=== PATIENT | female | born 1950 | race African-American/Black ===

== ENCOUNTER 2018-01-30 05:46 | Day surgery (SDC) | payer MEDICARE, MEDICAID ==
[~2018-01-30] VITALS: Ht 157.5 cm; Wt 77.1 kg
[~2018-01-30 05:46] MED LIST: ACET5SOL2 PO; AMLO10TA80 PO; ASPI-1159 PO; ATOR20TA65 PO; BENA5TAB3 PO; DOCU250C19 PO; METH50TA5 PO; NAPR-681 PO; PRED1DRO BOTHEYE; XALAO EACHEYE
[2018-01-30] MEDS ORDERED: TROPICAMIDE 1% OPHTH DROPS 15ML RIGHTEYE ONE (06:05)
[2018-01-30] MEDS ORDERED: CYCLOPENTOLATE HCL 1% OPHTH DROPS 2ML RIGHTEYE ONE (06:05)
[2018-01-30] MEDS ORDERED: PHENYLEPHRINE HCL 10% OPHTH DROPS 5ML RIGHTEYE ONE (06:05)
[2018-01-30] MEDS ORDERED: LACTATED RINGERS 1,000 ML IV SCH (06:35)
[2018-01-30] MEDS ORDERED: LIDOCAINE HCL/PF 1% 10 MG/ML 5ML VIAL ONE (07:04)
[2018-01-30] MEDS ORDERED: HYALURONATE SODIUM 14 MG/ML 0.85ML SYRINGE IO ONE (07:19)
[2018-01-30] MEDS ORDERED: BALANCED SALT IRRIG SOLN COMB1 500ML OP SCH (07:30)
[2018-01-30] MEDS ORDERED: PROPOFOL 200MG/20ML VIAL IV ONE ×3 (07:33→08:25)
[2018-01-30] MEDS ORDERED: PREDNISOLONE ACETATE 1% OPHTH DROPS 1ML ONE (14:34)
[2018-01-30] MEDS ORDERED: LIDOCAINE HCL/PF 2% 20 MG/ML 10ML VIAL ONE (14:34)
[2018-01-30] MEDS ORDERED: ACETYLCHOLINE CHLORIDE INTRAOCULAR SOLUTION 1:100 ELECTROLYTE DILUENT IO ONE (14:34)
[2018-01-30] MEDS ORDERED: CYCLOPENTOLATE HCL 1% OPHTH DROPS 2ML ONE (14:34)
[2018-01-30] MEDS ORDERED: NEO/POLYMYX B SULF/DEXAMETH OPHTH OINT 3.5GM ONE (14:34)
[2018-01-30] MEDS ORDERED: PHENYLEPHRINE HCL 10% OPHTH DROPS 5ML ONE (14:34)
[2018-01-30] MEDS ORDERED: TETRACAINE 0.5% OPHTH DROPS 4ML ONE (14:34)
[2018-01-30] MEDS ORDERED: BUPIVACAINE HCL/PF 0.75% (7.5MG/ML) 10ML ONE (14:34)
[2018-01-30] MEDS ORDERED: LIDOCAINE HCL 2%/EPINEPHRINE 1:100,000 20 ML VIAL INFIL ONE (14:34)
[2018-01-30] MEDS ORDERED: TROPICAMIDE 1% OPHTH DROPS 15ML ONE (14:34)
[2018-01-30] MEDS ORDERED: BALANCED SALT IRRIG SOLN 15ML ONE (14:34)
[2018-01-30] MEDS ORDERED: CIPROFLOXACIN 0.3% OPHTH SOLN 2.5ML ONE (14:34)
== END 2018-01-30 10:26 | disposition home or self-care (01) ==
LOC: OR 05:46
PROVIDERS: ATTEND Ophthalmology
DX: H25.011 Cortical age-related cataract, right eye (principal); H40.89 Other specified glaucoma; D64.89 Other specified anemias; I10 Essential (primary) hypertension; M19.90 Unspecified osteoarthritis, unspecified site; Z79.899 Other long term (current) drug therapy; Z79.82 Long term (current) use of aspirin; Z88.0 Allergy status to penicillin
CPT/HCPCS: 66984; 93005; J3490; J7120; V2632; J2704

== ENCOUNTER 2018-05-01 07:23 | Day surgery (SDC) | payer MEDICARE, MEDICAID ==
[~2018-05-01] VITALS: Ht 157.5 cm; Wt 80.7 kg
[~2018-05-01 07:23] MED LIST changes: +BALANCED SALT IRRIG SOLN COMB2 500ML OP ONE; -BENA5TAB3 PO; +BENA5TAB6 PO
[2018-05-01] MEDS ORDERED: LACTATED RINGERS 1,000 ML IV SCH (08:30)
[2018-05-01] MEDS ORDERED: PHENYLEPHRINE HCL 10% OPHTH DROPS 5ML LEFTEYE SCH (09:30)
[2018-05-01] MEDS ORDERED: CYCLOPENTOLATE HCL 1% OPHTH DROPS 2ML LEFTEYE SCH (09:30)
[2018-05-01] MEDS ORDERED: TROPICAMIDE 1% OPHTH DROPS 15ML LEFTEYE SCH (09:30)
[2018-05-01 09:50] LABS: BASOPHILS % 0.6 % (0.0-2.0); HEMOGLOBIN. 13.1 g/dL (12.0-16.0); LYMPHOCYTES % 21.2 % (20.0-50.0); MEAN CORPUSCULAR HEMOGLOBIN 32.5 pg (28.0-32.0); MEAN CORPUSCULAR VOLUME 99.2 fL (81.0-99.0); MEAN PLATELET VOLUME 10.2 fl (7.4-10.4); MONOCYTES % 6.2 % (2.0-8.0); PLATELET 173 x1000/uL (130-400); RED BLOOD CELL COUNT 4.04 mill/uL (4.2-5.4); RED CELL DISTRIBUTION WIDTH 15.4 % (11.6-14.6)
[2018-05-01 09:56] LABS: CHLORIDE 111 mEq/L (98-107)
[2018-05-01] MEDS ORDERED: HYALURONATE SODIUM 14 MG/ML 0.85ML SYRINGE IO ONE (12:22)
[2018-05-01] MEDS ORDERED: PROPOFOL 200MG/20ML VIAL IV ONE (12:41)
[2018-05-01] MEDS ORDERED: MIDAZOLAM HCL 2 MG/2 ML VIAL ONE (12:41)
[2018-05-01] MEDS ORDERED: FENTANYL CITRATE/PF 50MCG/ML 2ML VIAL ONE (12:41)
[2018-05-01] MEDS ORDERED: KETOROLAC 30MG/ML VIAL IV PRN (13:30)
[2018-05-01] MEDS ORDERED: ONDANSETRON HCL 4MG/2ML INJ IV PRN (13:30)
[2018-05-01] MEDS ORDERED: LIDOCAINE HCL/PF 2% 20 MG/ML 10ML VIAL ONE (15:12)
[2018-05-01] MEDS ORDERED: BALANCED SALT IRRIG SOLN 15ML ONE (15:12)
[2018-05-01] MEDS ORDERED: LIDOCAINE HCL 2%/EPINEPHRINE 1:100,000 20 ML VIAL INFIL ONE (15:12)
[2018-05-01] MEDS ORDERED: CYCLOPENTOLATE HCL 1% OPHTH DROPS 2ML ONE (15:12)
[2018-05-01] MEDS ORDERED: TROPICAMIDE 1% OPHTH DROPS 15ML ONE (15:12)
[2018-05-01] MEDS ORDERED: PHENYLEPHRINE HCL 2.5% OPHTH DROPS 2ML ONE (15:12)
[2018-05-01] MEDS ORDERED: BUPIVACAINE HCL/PF 0.75% (7.5MG/ML) 10ML ONE (15:12)
[2018-05-01] MEDS ORDERED: OFLOXACIN 0.3% OPHTH SOLN 5ML ONE (15:12)
[2018-05-01] MEDS ORDERED: ACETYLCHOLINE CHLORIDE INTRAOCULAR SOLUTION 1:100 ELECTROLYTE DILUENT IO ONE (15:12)
[2018-05-01] MEDS ORDERED: NEO/POLYMYX B SULF/DEXAMETH OPHTH OINT 3.5GM ONE (15:12)
[2018-05-01] MEDS ORDERED: TETRACAINE 0.5% OPHTH DROPS 4ML ONE (15:12)
[2018-05-01] MEDS ORDERED: PHENYLEPHRINE HCL 10% OPHTH DROPS 5ML ONE (15:12)
[2018-05-01] MEDS ORDERED: PREDNISOLONE ACETATE 1% OPHTH DROPS 1ML ONE (15:12)
== END 2018-05-01 15:12 | disposition home or self-care (01) ==
LOC: OR 07:23 → EDBD 07:23 → OR 15:12
PROVIDERS: ATTEND Ophthalmology
DX: H25.011 Cortical age-related cataract, right eye (principal); H40.9 Unspecified glaucoma; H40.051 Ocular hypertension, right eye; I10 Essential (primary) hypertension; E66.9 Obesity, unspecified; I25.10 Atherosclerotic heart disease of native coronary artery without angina pectoris; F17.210 Nicotine dependence, cigarettes, uncomplicated; I25.2 Old myocardial infarction; E78.00 Pure hypercholesterolemia, unspecified; Z90.710 Acquired absence of both cervix and uterus; Z79.899 Other long term (current) drug therapy; Z88.0 Allergy status to penicillin; Z98.890 Other specified postprocedural states
CPT/HCPCS: 36415; 66250; 66984; 80048; 85025; 93005; J2250; J3010; J3490; J7120; V2632; J2704

== ENCOUNTER 2022-07-22 19:58 | Inpatient (IN) | payer MEDICARE, MEDICAID ==
[~2022-07-22] VITALS: Ht 157.5 cm; Wt 90.7 kg
[~2022-07-22 19:58] MED LIST changes: -ASPI-1159 PO; +ASPI-1497 PO; -BALANCED SALT IRRIG SOLN COMB2 500ML OP ONE; +BENA5TAB40 PO; -BENA5TAB6 PO
[2022-07-22] MEDS ORDERED: ACETAMINOPHEN 325MG TABLET PO STA (23:34)
[2022-07-22] MEDS ORDERED: SODIUM CHLORIDE 0.9% 1,000 ML IV ONE (23:45)
[2022-07-23 00:21] LABS: BASOPHILS % 0.3 % (0.0-2.0); EOSINOPHILS % 0.8 % (0.0-5.0); HEMATOCRIT. 38.8 % (36.0-48.0); HEMOGLOBIN. 12.7 g/dL (12.0-16.0); LYMPHOCYTES % 7.7 % (20.0-50.0); MEAN CORPUSCULAR HEMOGLOBIN 31.4 pg (28.0-32.0); MEAN PLATELET VOLUME 10.6 fl (7.4-10.4); NEUTROPHILS % 85.2 % (40.0-76.0); PLATELET 344 x1000/uL (130-400); RED BLOOD CELL COUNT 4.04 mill/uL (4.2-5.4); RED CELL DISTRIBUTION WIDTH 13.9 % (11.6-14.6)
[2022-07-23 00:28] LABS: CHLORIDE 103 mEq/L (98-107)
[2022-07-23 00:30] LABS: INR 1.1; PROTHROMBIN TIME 11.9 sec (9.6-11.0)
[2022-07-23] MEDS ORDERED: ONDANSETRON HCL 4MG/2ML INJ IV PRN (09:30)
[2022-07-23] MEDS ORDERED: CEFTRIAXONE 1 G PREMIX 50 ML IV SCH (09:30)
[2022-07-23] MEDS: LEVOFLOXACIN 500MG PREMIX 100 ML IV SCH (10:38)
[2022-07-23] MEDS: ACETAMINOPHEN 325MG TABLET PO PRN ×2 (10:38→21:51)
[2022-07-23] MEDS: NAPROXEN 500MG TABLET PO PRN (10:38)
[2022-07-23 12:40] LABS: CLARITY URINE TURBID (CLEAR); COLOR URINE DARK YELLOW (YELLOW); KETONES URINE NEGATIVE (NEGATIVE); LEUKOCYTE ESTERASE URINE 3+ (NEGATIVE); NITRITE URINE POSITIVE (NEGATIVE); OCCULT BLOOD URINE 3+ (NEGATIVE); PH URINE 8.5 (4.5-8.0); PROTEIN URINE 2+ (NEGATIVE); SPECIFIC GRAVITY URINE 1.017 (1.005-1.030); UROBILINOGEN URINE >8.0 E.U./dL (0.2-1.0)
[2022-07-23] MEDS: GABAPENTIN 300MG CAPSULE PO SCH ×2 (13:48→21:51)
[2022-07-23 15:00] VITALS: BP_SYST 100; BP_SYST 89; BP_DIAS 42; BP_DIAS 65
[2022-07-23 20:00] VITALS: BP 113/61
[2022-07-23] MEDS ORDERED: SODIUM POLYSTYRENE SULFONATE 15 G/60 ML BOT PO SCH (20:15)
[2022-07-24] VITALS: BP 125/69
[2022-07-24 04:00] VITALS: BP 119/73
[2022-07-24] MEDS: NAPROXEN 500MG TABLET PO PRN ×2 (04:23→20:35)
[2022-07-24] MEDS: GABAPENTIN 300MG CAPSULE PO SCH ×3 (05:21→21:12)
[2022-07-24 08:00] VITALS: BP 97/59
[2022-07-24] MEDS: LEVOFLOXACIN 500MG PREMIX 100 ML IV SCH ×3 (10:00→11:45)
[2022-07-24] MEDS: ACETAMINOPHEN 325MG TABLET PO PRN (11:36)
[2022-07-24 12:00] VITALS: BP 110/49
[2022-07-24] MEDS ORDERED: IPRATROPIUM/ALBUTEROL 0.5-3(2.5)MG/3ML NEB HHN PRN (12:00)
[2022-07-24 16:00] VITALS: BP 118/52
[2022-07-24 16:41] LABS: HEMATOCRIT. 36.4 % (36.0-48.0); HEMOGLOBIN. 11.8 g/dL (12.0-16.0); MEAN CORPUSCULAR HEMOGLOBIN 31.2 pg (28.0-32.0); MEAN CORPUSCULAR VOLUME 96.4 fL (81.0-99.0); PLATELET 316 x1000/uL (130-400); RED BLOOD CELL COUNT 3.77 mill/uL (4.2-5.4); RED CELL DISTRIBUTION WIDTH 13.8 % (11.6-14.6)
[2022-07-24 17:05] LABS: CHLORIDE 103 mEq/L (98-107)
[2022-07-24 20:00] VITALS: BP 124/61
[2022-07-24 21:53] LABS: PLATELET ESTIMATE NORMAL
[2022-07-25] VITALS: BP 120/61
[2022-07-25 04:00] VITALS: BP 121/61
[2022-07-25] MEDS: GABAPENTIN 300MG CAPSULE PO SCH ×3 (05:01→21:28)
[2022-07-25 08:00] VITALS: BP 148/64
[2022-07-25] MEDS: NAPROXEN 500MG TABLET PO PRN (08:35)
[2022-07-25 12:00] VITALS: BP 141/58
[2022-07-25] MEDS: ACETAMINOPHEN 325MG TABLET PO PRN (14:00)
[2022-07-25] MEDS ORDERED: LEVO-65 MT (15:09)
[2022-07-25 16:00] VITALS: BP 137/64
[2022-07-25 20:00] VITALS: BP 116/56
[2022-07-25] MEDS: ZOLPIDEM TARTRATE 5MG TABLET PO PRN (21:28)
[2022-07-26] VITALS: BP 120/51
[2022-07-26 04:00] VITALS: BP 143/63
[2022-07-26] MEDS: GABAPENTIN 300MG CAPSULE PO SCH ×3 (06:27→21:47)
[2022-07-26 08:00] VITALS: BP 134/58
[2022-07-26] MEDS: LEVOFLOXACIN 500MG PREMIX 100 ML IV SCH (08:17)
[2022-07-26] MEDS: NAPROXEN 500MG TABLET PO PRN (09:10)
[2022-07-26 12:00] VITALS: BP 117/50
[2022-07-26 15:59] VITALS: BP 118/50
[2022-07-26 20:00] VITALS: BP 115/46
[2022-07-26] MEDS: ZOLPIDEM TARTRATE 5MG TABLET PO PRN (21:47)
[2022-07-27 04:00] VITALS: BP 128/60
[2022-07-27] MEDS: GABAPENTIN 300MG CAPSULE PO SCH ×3 (06:01→20:59)
[2022-07-27] MEDS: NAPROXEN 500MG TABLET PO PRN (07:33)
[2022-07-27 08:00] VITALS: BP 143/56
[2022-07-27] MEDS: LEVOFLOXACIN 500MG TABLET PO SCH (11:12)
[2022-07-27 12:00] VITALS: BP 133/66
[2022-07-27 16:00] VITALS: BP 130/61
[2022-07-27 20:00] VITALS: BP 160/64
[2022-07-27] MEDS: ZOLPIDEM TARTRATE 5MG TABLET PO PRN (20:59)
[2022-07-27] MEDS: ACETAMINOPHEN 325MG TABLET PO PRN (21:00)
[2022-07-28] VITALS: BP 122/71
[2022-07-28 04:00] VITALS: BP 130/70
[2022-07-28] MEDS: GABAPENTIN 300MG CAPSULE PO SCH ×2 (07:01→13:24)
[2022-07-28] MEDS: LEVOFLOXACIN 500MG TABLET PO SCH (10:56)
[2022-07-28] MEDS: NAPROXEN 500MG TABLET PO PRN (13:24)
[2022-07-28 13:39] VITALS: BP 142/75
== END 2022-07-28 14:20 | disposition home health service (06) | DRG 463 ==
LOC: ER 19:58 → 6EST 07-23 01:03
PROVIDERS: ADMIT Internal Medicine; ATTEND Internal Medicine
DX: N39.0 Urinary tract infection, site not specified (principal); E43 Unspecified severe protein-calorie malnutrition; I10 Essential (primary) hypertension; J44.9 Chronic obstructive pulmonary disease, unspecified; Z20.822 Contact with and (suspected) exposure to COVID-19; Z88.0 Allergy status to penicillin; Z79.899 Other long term (current) drug therapy; Z68.36 Body mass index [BMI] 36.0-36.9, adult; Z86.73 Personal history of transient ischemic attack (TIA), and cerebral infarction without residual deficits
CPT/HCPCS: 36415; 71045; 73502; 80048; 80053; 81003; 84484; 85025; 87077; 87186; 87426; 93970; 97162; 97167; 97530; 99285; A6261; C1893; C9803; J1956; J2405; J7030

== ENCOUNTER 2023-03-10 16:25 | Emergency (ER) | payer MEDICARE, MEDICAID ==
[~2023-03-10] VITALS: Ht 167.6 cm; Wt 90.0 kg
[~2023-03-10 16:25] MED LIST changes: -ACET5SOL2 PO; +ACET5SOL4 PO; +LEVO-65 MT
[2023-03-10 16:30] VITALS: TEMP 98.5; O2SAT 98
[2023-03-10] MEDS ORDERED: LIDOCAINE HCL/PF 1% 10 MG/ML 5ML VIAL INFIL ONE (16:45)
[2023-03-10] MEDS ORDERED: TETANUS, DIPHTHERIA, PERTUSSIS VAC/PF 0.5ML (>10YR OLD) IM ONE (16:45)
[2023-03-10 21:28] VITALS: BP 151/76; PULSE 59; RESP 18
== END 2023-03-11 02:08 | disposition home or self-care (01) ==
LOC: ER 16:25
DX: S01.112A Laceration without foreign body of left eyelid and periocular area, initial encounter (principal); J44.9 Chronic obstructive pulmonary disease, unspecified; E78.00 Pure hypercholesterolemia, unspecified; I10 Essential (primary) hypertension; Z86.73 Personal history of transient ischemic attack (TIA), and cerebral infarction without residual deficits; Z79.899 Other long term (current) drug therapy; H40.9 Unspecified glaucoma; W18.39XA Other fall on same level, initial encounter; Y93.89 Activity, other specified; Y92.89 Other specified places as the place of occurrence of the external cause; Y99.8 Other external cause status
CPT/HCPCS: 12013; 90471; 90715; 99285

== ENCOUNTER 2023-10-11 15:08 | Emergency (ER) | payer MEDICARE, MEDICAID ==
[~2023-10-11] VITALS: Ht 165.1 cm; Wt 82.0 kg
[2023-10-11 15:09] VITALS: O2SAT 99
[2023-10-11 16:29] LABS: ALANINE AMINOTRANSFERASE 13 IU/L (10-49); ASPARTATE AMINOTRANSFERASE 32 IU/L (<34); BILIRUBIN TOTAL 0.6 mg/dL (0.1-1.0); CALCIUM 10.2 mg/dL (8.7-10.4); CARBON DIOXIDE 26 mEq/L (21-32); CHLORIDE 102 mEq/L (98-107); CREATININE 0.9 mg/dL (0.6-1.0); GLUCOSE 73 mg/dL (70-105); POTASSIUM 4.7 mEq/L (3.5-5.1); PROTEIN TOTAL 8.8 g/dL (6.0-8.3); SODIUM 139 mEq/L (136-145); UREA NITROGEN BLOOD 19 mg/dL (9-23)
[2023-10-11 16:52] LABS: HEMATOCRIT. 49.3 % (36.0-48.0); HEMOGLOBIN. 15.6 g/dL (12.0-16.0); MEAN CORPUSCULAR HEMOGLOBIN 30.1 pg (28.0-32.0); MEAN CORPUSCULAR HGB CONC 31.5 g/dL (31.0-37.0); MEAN CORPUSCULAR VOLUME 95.5 fL (81.0-99.0); MEAN PLATELET VOLUME 10.9 fl (7.4-10.4); PLATELET 180 x1000/uL (130-400); RED BLOOD CELL COUNT 5.17 mill/uL (4.2-5.4); RED CELL DISTRIBUTION WIDTH 14.5 % (11.6-14.6); WHITE BLOOD COUNT 10.3 x1000/uL (4.5-11.0)
[2023-10-11 16:55] LABS: DIFFERENTIAL COMMENT 1
[2023-10-11 17:28] LABS: CLARITY URINE TURBID (CLEAR); COLOR URINE ORANGE (YELLOW); GLUCOSE URINE NEGATIVE (NEGATIVE); KETONES URINE 3+ (NEGATIVE); LEUKOCYTE ESTERASE URINE 3+ (NEGATIVE); NITRITE URINE POSITIVE (NEGATIVE); OCCULT BLOOD URINE 3+ (NEGATIVE); PH URINE 5.5 (4.5-8.0); PROTEIN URINE 2+ (NEGATIVE)
[2023-10-11 17:32] LABS: PLATELET ESTIMATE NORMAL
[2023-10-11 17:56] LABS: BACTERIA URINE 3+; RBC URINE 50-100 /hpf (0-2); SQUAMOUS EPITHELIAL CELL URINE 2+ /lpf (RARE/1+); WBC URINE TNTC /hpf (0-2)
[2023-10-11] MEDS ORDERED: LIDOCAINE HCL/EPINEPHRINE 1%-EPI 1:100,000 20 ML VIAL INFIL ONE (19:15)
[2023-10-11] MEDS ORDERED: CEFTRIAXONE SODIUM 1G VIAL IM ONE (19:15)
[2023-10-11] MEDS ORDERED: LEVO-65 MT (20:24)
[2023-10-11] MEDS: LEVOFLOXACIN 500MG PREMIX 100 ML IV ONE (20:46)
[2023-10-12 07:43] VITALS: BP 138/58; PULSE 68; RESP 15; TEMP 97.3
== END 2023-10-12 07:51 | disposition home or self-care (01) ==
LOC: ER 15:08
DX: N39.0 Urinary tract infection, site not specified (principal); J44.9 Chronic obstructive pulmonary disease, unspecified; E78.00 Pure hypercholesterolemia, unspecified; I10 Essential (primary) hypertension; H40.9 Unspecified glaucoma; Z86.73 Personal history of transient ischemic attack (TIA), and cerebral infarction without residual deficits; Z88.0 Allergy status to penicillin
CPT/HCPCS: 80053; 81003; 85025; 87086; 87186; 87077; 36415; 96365; 99285; J1956; Z7610